=== PATIENT | female | born 2000 | race Caucasian/White ===

== ENCOUNTER 2023-01-03 07:02 | Inpatient (IN) | payer BC ==
[2023-01-03 08:43] LABS: Absolute Neutrophil Ct (ANC) 9.44 x10^3/uL (1.4-6.9); BASOPHIL % 0.4 % (0.0-0.4); Basophil (Absolute #) 0.05 x10^3/uL (0-0.4); Eosinophil % 1.3 % (0.00-5.0); Eosinophil (Absolute #) 0.17 x10^3/uL (0-0.5); Hematocrit 31.5 % (35-47); Hemoglobin 10.6 g/dL (12.0-16.0); IMMATURE GRAN # 0.17 x10^3u/L (0.00-0.03); IMMATURE GRAN % 1.3 % (0.00-0.4); Lymphocyte (Absolute #) 2.75 x10^3/uL (1.0-4.6); Lymphocytes % 20.3 % (24.0-44.0); Mean Corpuscular Hemoglobin 31.6 pg (26-32); Mean Corpuscular Hgb Concent. 33.7 g/dL (32-36); Mean Platelet Volume 10.1 fL (7.5-11.0); Monocytes % 7.4 % (0.0-12.0); Neutrophil % 69.3 % (36.0-66.0); Platelet Count 250 x10^3/uL (150-450); Red Blood Count 3.35 x10^6/uL (4.1-5.4); Red Cell Distribution Width 12.4 % (11.5-14.0); White Blood Count 13.6 x10^3/uL (4.0-10.5)
[2023-01-03 09:00] LABS: Amphetamine,Urine NEGATIVE (NEGATIVE); Barbiturate,Urine NEGATIVE (NEGATIVE); Benzodiazepine,Urine NEGATIVE (NEGATIVE); Cocaine,Urine NEGATIVE (NEGATIVE); Methadone,Urine NEGATIVE (NEGATIVE); Opiate,Urine NEGATIVE (NEGATIVE); PCP,Urine NEGATIVE (NEGATIVE); THC,Urine NEGATIVE (NEGATIVE)
[2023-01-03 09:35] LABS: ABO TYPING O; Antibody Screen NEGATIVE (NEGATIVE); RH TYPING POSITIVE
[2023-01-03] MEDS ORDERED: STADOL 2 MG IV PRN (10:18)
[2023-01-03] MEDS ORDERED: TYLENOL EXTRA STRENGTH 500 MG PO PRN (10:18)
[2023-01-03] MEDS ORDERED: Zofran 4 MG/2 ML VIAL IV PRN (10:18)
[2023-01-03] MEDS ORDERED: Nubain 10 MG/ML IV PRN (10:18)
[2023-01-03] MEDS ORDERED: PITOCIN 30 UNITS/ LR 500 ML 30 UNITS/500 ML PLAST..BAG IV SCH (10:30)
[2023-01-03] MEDS ORDERED: Lactated Ringers 1,000 ML IV SCH (10:30)
[2023-01-03] MEDS ORDERED: Lactated Ringers 1,000 ML IV ONE (10:35)
[2023-01-03] MEDS ORDERED: FENTANYL 2 MCG-BUPIV 0.125%-NS 250 ML Epidur 250 ML EPIDURAL SCH (10:45)
[2023-01-03] MEDS ORDERED: CYTOTEC PO SCH (14:45)
[2023-01-04] MEDS ORDERED: XYLOCAINE 1% HCL 20 ML MDV ONE (06:35)
[2023-01-04] MEDS ORDERED: XYLOCAINE 1% HCL 20 ML MDV IJ ONE (06:53)
[2023-01-04] MEDS ORDERED: PITOCIN 30 UNITS/ LR 500 ML 30 UNITS/500 ML PLAST..BAG IV SCH (07:30)
[2023-01-04] MEDS ORDERED: miSOPROStoL PO SCH (08:45)
[2023-01-04 09:00] LABS: Appearance Clear (Clear); Bacteria None Seen /HPF (None Seen); Bilirubin Negative (Negative); Blood Negative (Negative); Epithelial Cells None Seen /HPF (None Seen); Glucose, Urine Negative (Negative); Hyaline Casts NONE SEEN /LPF (0-2); Ketones Negative (Negative); Leukocyte Esterase Negative (Negative); Nitrite Negative (Negative); Ph 7.5 (4.6-8.0); Protein,Urine Dip Negative (Negative); RBC 0-2 /HPF (0-5); Urobilinogen 0.2 mg/dL (0.2); WBC 0-2 /HPF (0-5)
[2023-01-04 09:02] LABS: ADD URINE CULTURE? ORDERED SEPARATELY (NO)
[2023-01-04] MEDS ORDERED: Dermoplast Spray TP PRN (10:29)
[2023-01-04] MEDS ORDERED: LANSINOH 40 GM TOP PRN (10:29)
[2023-01-04] MEDS ORDERED: MOTRIN 400 MG PO PRN (10:29)
[2023-01-04] MEDS ORDERED: TUCKS TP PRN (10:29)
[2023-01-05 04:44] LABS: Absolute Neutrophil Ct (ANC) 12.69 x10^3/uL (1.4-6.9); BASOPHIL % 0.3 % (0.0-0.4); Basophil (Absolute #) 0.05 x10^3/uL (0-0.4); Eosinophil % 0.7 % (0.00-5.0); Eosinophil (Absolute #) 0.12 x10^3/uL (0-0.5); Hematocrit 33.5 % (35-47); Hemoglobin 11.3 g/dL (12.0-16.0); IMMATURE GRAN # 0.16 x10^3u/L (0.00-0.03); IMMATURE GRAN % 0.9 % (0.00-0.4); Lymphocyte (Absolute #) 2.64 x10^3/uL (1.0-4.6); Lymphocytes % 15.6 % (24.0-44.0); Mean Cell Volume 94.9 fL (78-100); Mean Corpuscular Hgb Concent. 33.7 g/dL (32-36); Monocyte (Absolute #) 1.25 x10^3/uL (0.0-1.3); Monocytes % 7.4 % (0.0-12.0); Neutrophil % 75.1 % (36.0-66.0); Platelet Count 247 x10^3/uL (150-450); Red Blood Count 3.53 x10^6/uL (4.1-5.4); Red Cell Distribution Width 12.6 % (11.5-14.0); White Blood Count 16.9 x10^3/uL (4.0-10.5)
--- NOTE | 2023-01-05 08:08 | PCM.NOTE ---
Date and Time: 01/05/23806 Subjective Assessment: ppd 1 sp pt resting in bed and doing well without complaints vss afebrile abd; soft uterus; firm lochia; mild a/p sp ppd 1 anticipate discharge tomorrow should fu in office in 3 wks OBJECTIVE DATA Vital Signs: Vital Signs - 24 hr Temp Pulse Resp BP BP BP Pulse Ox 01/05/23 04:55 17 99 01/05/23 01:00 98.1 F 73 16 117/55 99 01/04/23 21:00 98.2 F 80 16 120/69 99 01/04/23 17:00 98.2 F 78 16 103/55 98 01/04/23 16:48 98.2 F 78 16 103/55 98 01/04/23 15:45 72 17 108/60 98 01/04/23 15:15 68 18 114/67 100 01/04/23 15:00 68 18 125/71 99 01/04/23 14:45 78 20 105/61 99 01/04/23 14:30 98.1 F 106 H 18 114/70 99 01/04/23 14:08 105 H 17 120/69 98 01/04/23 14:00 97 H 17 115/69 98 01/04/23 13:45 105 H 17 157/93 98 01/04/23 13:30 108 H 17 157/93 98 01/04/23 13:15 72 17 98 01/04/23 13:00 84 18 113/57 123/60 98 01/04/23 12:45 75 17 99 01/04/23 12:30 75 17 99 01/04/23 12:15 64 17 100 01/04/23 11:45 67 18 106/65 100 01/04/23 11:30 55 L 16 100 01/04/23 11:15 65 16 115/70 100 01/04/23 11:00 59 L 16 113/63 97 01/04/23 10:45 59 L 16 97 01/04/23 10:30 72 16 98 01/04/23 10:15 72 16 98 01/04/23 10:00 66 16 85/48 97 01/04/23 09:45 69 16 97 01/04/23 09:30 65 16 98 01/04/23 09:15 69 16 97 01/04/23 09:00 64 16 94/53 94/53 117/63 97 01/04/23 08:45 63 16 100 01/04/23 08:30 60 16 108/65 100 01/04/23 08:15 59 L 16 111/70 99 Pain Assessment - Last Documented Pain Intensity [Lower] 0 Pain Intensity 0 Intake and Output: Intake & Output 01/02/23 01/03/23 01/04/23 01/05/23 11:59 11:59 11:59 11:59 Intake Total 2560 525 Output Total 800 Balance 1760 525 Weight 85.729 kg Lab Results: Lab Results-Last 24 Hours 01/04/23 01/05/23 Range/Units 08:51 04:30 WBC 16.9 H (4.0-10.5) x10^3/uL RBC 3.53 L (4.1-5.4) x10^6/uL Hgb 11.3 L (12.0-16.0) g/dL Hct 33.5 L (35-47) % MCV 94.9 (78-100) fL MCH 32.0 (26-32) pg MCHC 33.7 (32-36) g/dL RDW 12.6 (11.5-14.0) % Plt Count 247 (150-450) x10^3/uL MPV 10.0 (7.5-11.0) fL Gran % 75.1 H (36.0-66.0) % Immature Gran % (Auto) 0.9 H (0.00-0.4) % Nucleat RBC Rel Count 0.0 (0.00-0.1) % Eos # (Auto) 0.12 (0-0.5) x10^3/uL Immature Gran # (Auto) 0.16 H (0.00-0.03) x10^3u/L Absolute Lymphs (auto) 2.64 (1.0-4.6) x10^3/uL Absolute Monos (auto) 1.25 (0.0-1.3) x10^3/uL Absolute Nucleated RBC 0.00 (0.00-0.01) x10^3u/L Lymphocytes % 15.6 L (24.0-44.0) % Monocytes % 7.4 (0.0-12.0) % Eosinophils % 0.7 (0.00-5.0) % Basophils % 0.3 (0.0-0.4) % Absolute Granulocytes 12.69 H (1.4-6.9) x10^3/uL Basophils # 0.05 (0-0.4) x10^3/uL Urine Color Yellow (Yellow) Urine Appearance Clear (Clear) Urine pH 7.5 (4.6-8.0) Ur Specific [place] 1.010 (1.005-1.030) Urine Protein Negative (Negative) Urine Glucose (UA) Negative (Negative) mg/dL Urine Ketones Negative (Negative) Urine Blood Negative (Negative) Urine Nitrite Negative (Negative) Urine Bilirubin Negative (Negative) Urine Urobilinogen 0.2 (0.2) mg/dL Ur Leukocyte Esterase Negative (Negative) U Hyaline Cast (Auto) NONE SEEN (0-2) /LPF Urine Microscopic RBC 0-2 (0-5) /HPF Urine Microscopic WBC 0-2 (0-5) /HPF Ur Epithelial Cells None Seen (None Seen) /HPF Urine Bacteria None Seen (None Seen) /HPF Urine Culture Reflexed ORDERED SEPARATELY (NO) Assessment/Plan (1) Vaginal delivery Current Visit: Yes Status: Acute Code(s): O80 - ENCOUNTER FOR FULL-TERM UNCOMPLICATED DELIVERY
[2023-01-05] MEDS: Docusate Sodium 100 MG PO SCH ×2 (09:24→23:48)
[2023-01-05] MEDS: FERREX 150 PO SCH (09:24)
[2023-01-05] MEDS ORDERED: Adacel Vial IM ONE (10:29)
[2023-01-05] MEDS ORDERED: Docusate Sodium 100 MG PO SCH (22:00)
--- NOTE | 2023-01-06 07:36 | PCM.NOTE ---
Date and Time: 01/06/23733 Subjective Assessment: ppd 2 pt resting in bed and doing well able to ambulate and tolerate diet vss afebrile abd; soft uterus; firm lochia; mild a/p sp ppd 2 dc home today fu office 3 wks OBJECTIVE DATA Vital Signs: Vital Signs - 24 hr Temp Pulse Resp BP Pulse Ox 01/06/23 02:00 97.9 F 57 L 17 110/67 98 01/05/23 22:00 98.1 F 63 16 111/62 99 01/05/23 20:00 98.1 F 63 16 111/62 99 01/05/23 16:00 98.0 F 60 16 115/68 98 01/05/23 13:00 98.0 F 60 16 115/68 98 01/05/23 09:00 98.1 F 71 14 110/58 Pain Assessment - Last Documented Pain Intensity [Lower] 0 Pain Intensity 0 Pain Scale Used 0-10 Pain Scale Intake and Output: Intake & Output 01/03/23 01/04/23 01/05/23 01/06/23 11:59 11:59 11:59 11:59 Intake Total 2560 525 400 Output Total 800 Balance 1760 525 400 Weight 85.729 kg Assessment/Plan (1) Vaginal delivery Current Visit: Yes Status: Acute Code(s): O80 - ENCOUNTER FOR FULL-TERM UNCO MPLICATED DELIVERY
--- NOTE | 2023-01-06 07:38 | PCM.DS ---
Discharge Summary Date of Admission: 01/04/23 07:02 Admitting Physician: VIRAJ VALENTE DO Consults: Consults on Case 01/04/23 18:34 Navigation ONCE Primary Care Provider: TARA BOWLES Allergies Allergies No Known Drug Allergies Allergy (Verified 05/29/14 09:00) Hospital Summary - Hospital Course Hospital Course: pt admitted on january 03 for vaginal cytotec induction at 39 wks gestation and subsequently delivered live baby girl via on january 04 without complication. during period did very well able to ambulate and tolerate diet with stable hgb level at 11. at this time pt stable for discharge and was advised to fu in office in 3 wks for care. all questions answered to her satisfaction. - Vitals & Intake/Output Vital Signs: Vital Signs Temperature 97.9 F 01/06/23 02:00 Pulse Rate 57 L 01/06/23 02:00 Respiratory Rate 17 01/06/23 02:00 Blood Pressure 110/67 01/06/23 02:00 O2 Sat by Pulse Oximetry 98 01/06/23 02:00 Intake & Output: Intake & Output 01/03/23 01/04/23 01/05/23 01/06/23 11:59 11:59 11:59 11:59 Intake Total 2560 525 400 Output Total 800 Balance 1760 525 400 Weight 85.729 kg - Lab Result Diagrams: 01/05/23 04:30 Micro Results-Entire Visit: Microbiology 01/04/23 08:48 Urine Culture - Preliminary Urine, Indwelling Catheter NO GROWTH TO DATE Final Diagnosis/Problem List - Final Discharge Diagnosis/Problem (1) Vaginal delivery Current Visit: Yes Status: Acute Code(s): O80 - ENCOUNTER FOR FULL-TERM UNCOMPLICATED DELIVERY - Discharge Disposition: Home, Self-Care Condition: Stable Prescriptions: No Action Pnv No.95/Ferrous Fum/Folic AC [ Caplet] 1 mg PO DAILY Follow up with: TARA BOWLES NP [Primary Care Provider] - VIRAJ VALENTE DO [ACTIVE STAFF] - 3 weeks
[2023-01-06 08:22] VITALS: BP 102/64; PULSE 58; RESP 16; TEMP 97.7; O2SAT 99
[2023-01-06] MEDS: FERREX 150 PO SCH (11:24)
[2023-01-06] MEDS: Docusate Sodium 100 MG PO SCH (11:24)
== END 2023-01-06 15:15 | disposition home or self-care (01) | DRG 807 ==
LOC: OB 07:02 → INTOOBSV 01-04 07:02 → OBSVTOIN 01-04 07:02
PROVIDERS: ADMIT Obstetrics & Gynecology; ATTEND Obstetrics & Gynecology
PROC: 10E0XZZ Delivery of Products of Conception, External Approach (ICD-10-PCS; principal; 2023-01-04)
DX: O80 Encounter for full-term uncomplicated delivery (principal); Z37.0 Single live birth; Z3A.39 39 weeks gestation of pregnancy; Z20.828 Contact with and (suspected) exposure to other viral communicable diseases
CPT/HCPCS: 36415; 80307; 81001; 85025; 86850; 86900; 86901; 87086; 90715; G0378; J2590; A9270-GY